=== PATIENT | male | born 1970 | race Caucasian/White ===

== ENCOUNTER 2017-01-05 00:11 | Emergency (ER) | payer BC ==
[~2017-01-05] VITALS: Ht 190.5 cm; Wt 88.0 kg
[2017-01-05 00:13] VITALS: BP 134/82; PULSE 73; RESP 14; TEMP 97.8; O2SAT 98
[2017-01-05] MEDS ORDERED: PROPARACAINE HCL 0.5% OPHT SOLN 15 ML BTL LEFT EYE ONE (00:30)
--- NOTE | 2017-01-05 00:36 | PD ---
HPI Chief Complaint: Eye Problems/Injury Time Seen by Provider: 00:31 Travel History International Travel<30 days: No Contact w/Intl Traveler<30days: No Traveled to known affect area: No History of Present Illness HPI 46-year-old male presents for evaluation of left eye foreign body sensation. He reports that [place] to arrival [place] the beach and he felt something go into his left eye. He now has a foreign body sensation and irritation left eye. Symptoms are mild, aggravated by having the eye open. He does not work contacts. He has no other complaints. [facility] Social History Alcohol Use: Yes Tobacco Use: No Allergies-Medications (Allergen,Severity, Reaction): Coded Allergies: No Known Allergies (Unverified , 01/05/17) Reported Meds & Prescriptions Reported Meds & Active Scripts Active Polytrim Opth Drops (Polymyxin/Trimethoprim Sulfate) 10,000-0.1 Unit/Ml-% Soln 1 Drop LEFT EYE Q6HR 7 Days Review of Systems General / Constitutional: No: Fever Eyes: Positive: Redness, Foreign Body Sensation, Tearing Physical Exam Narrative GENERAL: Well-developed well-nourished male in no acute distress SKIN: Warm and dry. HEAD: Atraumatic. Normocephalic. EYES: Pupils equal and round reactive to light extraocular muscles are intact. The upper eyelid was everted and there is no evidence of foreign body. Wood's lamp was performed and there is a tiny area of increased corneal uptake at the 7 o'clock position not overlying the pupil, negative Deja's. ENT: No nasal bleeding or discharge. Mucous membranes pink and moist. Data Data Last Documented VS Vital Signs Date Time Temp Pulse Resp B/P Pulse Ox O2 Delivery O2 Flow Rate FiO2 01/05/17 00:13 97.8 73 14 134/82 98 Room Air Orders Proparacaine 0.5% Opth Soln (Alcaine 0.5 (01/05/17 00:30) Polymyxin/Trimethop Opht Soln (Polytrim (01/05/17 00:45) MDM Medical Decision Making Medical Screen Exam Complete: Yes Emergency Medical Condition: Yes Medical Record Reviewed: Yes Differential Diagnosis Corneal abrasion, retained foreign body, ruptured globe, iritis Narrative Course 46 year old male who developed left eye irritation and foreign body sensation at the beach prior to arrival. He washed the eye out prior to arrival but he continues to have foreign body sensation. On examination he has a corneal abrasion at the 7 o'clock position not overlying the pupil. There is no evidence of retained foreign body. His last tetanus vaccination is within 5 years. The patient is being discharged with Polytrim ophthalmic solution. Discussed expected course of treatment. Discussed signs and symptoms that would warrant returning to the emergency room. He is stable for discharge. Diagnosis Primary Impression: Corneal abrasion Qualified Code: S05.02XA - Corneal abrasion, left, initial encounter Additional Instructions: Antibiotic drops as prescribed. [id number] Tylenol or Motrin for discomfort. As discussed, symptoms should gradually resolve over the next 3 days. If symptoms have worsened in 3 days, return to the emergency room or follow-up with an security intelligence analyst. Med/Other Pt SpecificInfo: Prescription(s) given Scripts Polymyxin B-Trimethoprim Opth Drops (Polytrim Opth Drops)10,000-0.1 Unit/Ml-% Soln1 Drop LEFT EYE Q6HR 7 Days Ref 0 Prov:Talib Morse MD 01/05/17 Disposition: 01 DISCHARGE HOME Condition: Stable Joo Renee Jan 05, 2017 00:36
[2017-01-05] MEDS ORDERED: POLY10O LEFT EYE (00:45)
[2017-01-05] MEDS ORDERED: POLYMYXIN/TRIMETHOPRIM OPHT SOLN 10 ML BTL LEFT EYE ONE (00:45)
== END 2017-01-05 01:20 | disposition home or self-care (01) ==
LOC: NEPK 00:11
DX: S05.02XA Injury of conjunctiva and corneal abrasion without foreign body, left eye, initial encounter (principal); X58.XXXA Exposure to other specified factors, initial encounter; Y92.832 Beach as the place of occurrence of the external cause
CPT/HCPCS: 99283